=== PATIENT | male | born 1980 | race Caucasian/White ===

== ENCOUNTER 2017-01-22 14:54 | Emergency (ER) | payer OTHER ==
[2017-01-22 15:14] LABS: BASOPHIL 0.4 % (0-2); EOSINOPHIL 7.2 % (0-5); HCT 45.8 % (42.0-52.0); HGB 16.2 g/dl (13.2-18.0); LYMPHOCYTE 23.2 % (15-48); MCHC 35.4 g/dL (32.0-36.0); MCV 87.7 fL (78.0-100.0); MONOCYTE 9.8 % (0-12); MPV 9.2 fL (6.0-9.5); NEUTROPHIL 59.4 % (41-80); PLT 222 K/uL (150-400); RBC 5.22 M/uL (4.70-6.00); RDW 13.9 % (11.5-14.0)
[2017-01-22 15:27] LABS: INR 0.99 (0.9-1.2); PROTHROMBIN TIME 12.7 SECONDS (11.7-14.0); PTT 27.9 SECONDS (23.2-31.4)
[2017-01-22 15:43] LABS: BILIRUBIN - TOTAL 0.3 mg/dL (0.1-1.0); CREATININE 0.9 mg/dL (0.7-1.2); GLOBULIN (CALCULATION) 2.5 g/dL (2.2-4.2); MAGNESIUM 2.1 mg/dL (1.40-2.10); POTASSIUM 3.8 mmol/L (3.5-5.1); TOTAL PROTEIN 7.5 g/dL (6.4-8.3)
[2017-01-22 15:45] LABS: MYOGLOBIN 22 ng/mL (26-65); PRO-BNP 5 pg/mL (0-125); TROPONIN T < 0.010 ng/mL
[2017-01-22 15:46] LABS: BILIRUBIN NEGATIVE (NEGATIVE); BLOOD NEGATIVE Ery/uL (NEGATIVE); CLARITY CLEAR (CLEAR); COLOR YELLOW (YELLOW); GLUCOSE (U) NORMAL (NORMAL); KETONE (U) NEGATIVE (NEGATIVE); LEUKOCYTES NEGATIVE Leu/uL (NEGATIVE); NITRITE NEGATIVE (NEGATIVE); PROTEIN NEGATIVE (NEGATIVE); UROBILINOGEN 0.2 mg/dL (0.2-1.0); pH 6.5 (5.0-9.0)
[2017-01-22 16:00] LABS: AMPHETAMINES NEGATIVE (NEGATIVE); BARBITURATES NEGATIVE (NEGATIVE); BENZODIAZEPINES NEGATIVE (NEGATIVE); COCAINE NEGATIVE (NEGATIVE); MARIJUANA (THC) NEGATIVE (NEGATIVE); METHADONE NEGATIVE (NEGATIVE); TRICYCLIC ANTIDEPRESSANT NEGATIVE (NEGATIVE)
== END 2017-01-22 16:58 | disposition home or self-care (01) ==
LOC: FER 14:54
PROVIDERS: Emergency Medicine
DX: R00.2 Palpitations (principal); F17.210 Nicotine dependence, cigarettes, uncomplicated; Z87.19 Personal history of other diseases of the digestive system; Z88.0 Allergy status to penicillin
CPT/HCPCS: 36415; 71010; 80053; 80305; 81003; 82550; 82553; 83735; 83874; 83880; 84484; 85025; 85610; 85730; 93005; 94640